=== PATIENT | female | born 1940 ===

== ENCOUNTER 2018-05-10 05:02 | Day surgery (SDC) | payer MEDICAID ==
--- NOTE | 2018-05-08 16:03 | Pre-Procedure Note/Attestation ---
Pre-Procedure Note/Attestation Complete Prior to Procedure Planned Procedure: right Procedure Narrative: pars plana vitrectomy with endolaser, OD Indications for Procedure Pre-Operative Diagnosis: Vitreous hemorrhage, OD Attestation I attest that I discussed the nature of the procedure; its benefits; risks and complications; and alternatives (and the risks and benefits of such alternatives ), prior to the procedure, with the patient (or the patient's legal call center representative). I attest that, if there was a reasonable possibility of needing a blood transfusion, the patient (or the patient's legal call center representative) was given the [facility] standardized written summary, pursuant to the Pee Yohannes Blood Safety Act ([place] Health and Safety Code # 1645, as amended). I attest that I re-evaluated the patient just prior to the surgery and that there has been no change in the patient's H&P, except as documented below: CHARLES CORNELL May 08, 2018 16:03
--- NOTE | 2018-05-08 16:06 | Opthalmology H&P ---
Ophthalmology H&P H&P Chief Complaint: decreased vision in right eye HPI Vision Affects Ability to: read, focus/use eyes together, manage personal affairs HPI Narrative blurry vision Exam Visual Acuity: OD: 20/200 OS: HM Tension: od: 12 os: 14 Eye Exam: normal OU: external exam, palpebral fissure-width, marginal reflex distance, levator function, corneas, anterior chambers; findings: lens - od: NS os: NS, fundus exam - vITREOUS HEME Assessment/Plan Diagnosis: (1) Vitreous hemorrhage of right eye Attestation Attestation The risks and benefits of the surgery as well as alternative procedures were explained to the patient in detail. CHARLES CORNELL May 08, 2018 16:05
[2018-05-10] VITALS (9 sets, daily range): BP systolic 148–180; BP diastolic 57–81
[~2018-05-10] VITALS: Ht 129.5 cm; Wt 64.0 kg
[~2018-05-10 05:02] MED LIST: ASPIR 8181 MG ORAL; GLIPIZIDE5 MG ORAL; METFORMIN HCL500 M1 ORAL; METOPROLOL TART25 MG ORAL; NORVASC5 MG ORAL; SPIRONOLACTONE25 MG ORAL
[2018-05-10] MEDS: Tobramycin Op Soln 0.3% 5ml RIGHT EYE SCH ×3 (06:27→06:50)
[2018-05-10] MEDS: Phenylephrine 10% Opth Soln 5ml RIGHT EYE SCH ×3 (06:28→06:50)
[2018-05-10] MEDS: Diclofenac Sod 0.1% Op Soln RIGHT EYE SCH ×3 (06:28→06:50)
[2018-05-10] MEDS: Cyclopentolate 1% Opth Sol 2ml RIGHT EYE SCH ×3 (06:28→06:50)
[2018-05-10] MEDS: Tropicamide 1% Opth 15ml Soln RIGHT EYE SCH ×3 (06:28→06:50)
[2018-05-10] MEDS ORDERED: Akten 3.5% 1ml Btl RIGHT EYE ONE (07:00)
[2018-05-10] MEDS ORDERED: Dexamethasone 4mg/ml vial ONE (07:00)
[2018-05-10] MEDS ORDERED: Pilocarpine 2% Opth 15ml Soln ONE (07:00)
[2018-05-10] MEDS ORDERED: Tetracaine 0.5% Opth 4ml Soln RIGHT EYE ONE (07:00)
[2018-05-10] MEDS ORDERED: Maxitrol Opth Oint 3.5gm ONE (07:00)
[2018-05-10] MEDS ORDERED: Pred Forte 1% Opth Susp 1ml ONE (07:00)
[2018-05-10] MEDS ORDERED: Proparacaine 0.5% Opth Soln 15ml RIGHT EYE ONE (07:00)
[2018-05-10] MEDS ORDERED: fentaNYL 100 mcg/2 mL IV ONE (07:04)
[2018-05-10] MEDS ORDERED: Propofol 200mg/20ml IV ONE (07:05)
[2018-05-10] MEDS ORDERED: Midazolam 2mg/2ml Inj ONE (07:05)
[2018-05-10] MEDS ORDERED: Kenalog-10 5ml Inj ONE (07:16)
[2018-05-10] MEDS ORDERED: BSS 500ml btl ONE (07:16)
[2018-05-10] MEDS ORDERED: Lidocaine 2% MPF 5ml Vial INJ ONE (07:16)
[2018-05-10] MEDS ORDERED: Kenalog-40 1ml Vial ONE (07:16)
[2018-05-10] MEDS ORDERED: BSS 15ml BTL ONE (07:17)
[2018-05-10] MEDS ORDERED: Povidone-Iodine 5% opth solution ONE (07:17)
[2018-05-10] MEDS ORDERED: Bupivacaine 0.75% 30ml vial INJ ONE (07:17)
[2018-05-10] MEDS ORDERED: EPINEPHrine 1mg/1ml Amp ONE (07:24)
[2018-05-10] MEDS ORDERED: Labetalol 5mg/ml 20ml vial IV ONE (07:30)
[2018-05-10] MEDS ORDERED: NS Irrig 1000ml ONE (07:30)
[2018-05-10] MEDS ORDERED: Sterile Water Irrig 1000ml IRRIG ONE (07:30)
[2018-05-10] MEDS ORDERED: LR 1000ml ONE (07:30)
[2018-05-10] MEDS ORDERED: LR 1000ml 1,000 ML IVLG SCH (07:40)
--- NOTE | 2018-05-10 07:40 | Anethesia Preoperative Eval ---
Anesthesia Pre-op PMH/ROS General Date of Evaluation: May 10, 2018 Time of Evaluation: 07:36 Anesthesiologist: Yobani ASA Score: ASA 3 Mallampati Score Class I : Soft palate, uvula, fauces, pillars visible Class II: Soft palate, uvula, fauces visible Class III: Soft palate, base of uvula visible Class IV: Only hard plate visible Mallampati Classification: Class II Surgeon: Kimmy Diagnosis: R eye vitreous hemorrhage Surgical Procedure: R eye PPV Anesthesia History: none Family History: no anesthesia problems Allergies: Coded Allergies: No Known Allergies (Unverified , 05/10/18) Medications: see eMAR Past Medical History Cardiovascular: Reports: HTN, CAD - no recent CP; Denies: NV, valve dz, arrhythmia, other Pulmonary: Denies: asthma, COPD, BERNARD, other Gastrointestinal/Genitourinary: Reports: GERD - mild; Denies: CRI, ESRD, other Neurologic/Psychiatric: Denies: dementia, CVA, depression/anxiety, TIA, other Endocrine: Reports: DM - stable on pills; Denies: hypothyroidism, steroids, other HEENT: Reports: glaucoma; Denies: cataract (L), cataract (R), KIANA (L), KIANA (R), other Hematology/Immune: Denies: anemia, DVT, bleeding disorder, other Musculoskeletal/Integumentary: Reports: DJD; Denies: OA, RA, DDD, edema, other PMH Narrative: as above PSxH Narrative: cholecystectomy Anesthesia Pre-op Phys. Exam Physician Exam Last Vital Signs Date Time Temp Pulse Resp B/P (MAP) Pulse Ox O2 Delivery O2 Flow Rate FiO2 05/10/18 06:52 98.1 70 18 163/70 (101) 96 98.1 05/10/18 06:30 Room Air Constitutional: NAD Neurologic: CN 2-12 intact Cardiovascular: RRR, no M/R/G Respiratory: CTA Gastrointestinal: S/NT/ND Airway Exam Mallampati Score: Class II MO: limited Neck: stiff ROM: limited Teeth: missing Dentures: no upper, no lower Anesthesia Pre-op A/P Labs see chart Studies Pre-op Studies: EKG - SR Risk Assessment & Plan Assessment: ASA 3 Plan: MAC Status Change Before Surgery: No Pre-Antibiotics Drug: none Franco Hilton MD May 10, 2018 07:40
[2018-05-10] MEDS ORDERED: fentaNYL 100 mcg/2 mL IV PRN (07:45)
--- NOTE | 2018-05-10 10:42 | Immediate Post-Op Evaluation ---
Immediate Post-Op Evalulation Immediate Post-Op Evalulation Procedure: R eye PPV laser treatment Date of Evaluation: May 10, 2018 Time of Evaluation: 09:22 IV Fluids: 300 Blood Products: none Estimated Blood Loss: min Urinary Output: none Blood Pressure Systolic: 142 Blood Pressure Diastolic: 68 Pulse Rate: 64 Respiratory Rate: 20 O2 Sat by Pulse Oximetry: 99 Temperature (Fahrenheit): 97.5 Pain Score (1-10): 1 Nausea: No Vomiting: No Complications none Patient Status: awake, patent, none Hydration Status: adequate Franco Hilton MD May 10, 2018 10:42
--- NOTE | 2018-05-10 14:56 | 48 Hour Post Anesthesia Eval ---
Post Anesthesia Evaluation Procedure: R eye PPV laser treatment Date of Evaluation: May 10, 2018 Time of Evaluation: 09:45 Blood Pressure Systolic: 148 0: 57 Pulse Rate: 72 Respiratory Rate: 20 Temperature (Fahrenheit): 97.6 O2 Sat by Pulse Oximetry: 98 Airway: patent Nausea: No Vomiting: No Pain Intensity: 2 Hydration Status: adequate Cardiopulmonary Status: stable Mental Status/LOC: patient returned to baseline Follow-up Care/Observations: n/a Post-Anesthesia Complications: none Follow-up care needed: ready to discharge Franco Hilton MD May 10, 2018 14:55
--- NOTE | 2018-05-13 17:17 | Brief Operative Note ---
Immediate Post Operative Note Operative Note Chief Complaint: blurry vision affecting daily living Pre-op Diagnosis: Vitreous hemorrhage, OD Procedure: Pars Plan Vitrectomy with endolaser, OD Post-op Diagnosis: Vitreous hemorrhage, OD Post-op Diagnosis: same as pre-op Findings: consistent w/pre-op dx studies Surgeon: Kimmy Anesthesiologist: Yobani Anesthesia: MAC Specimen: none Complications: none Condition: stable Fluids: LR Estimated Blood Loss: none Drains: none Implant(s) used?: Yes CHARLES CORNELL May 13, 2018 17:17
--- NOTE | 2018-05-13 19:52 | Operative Note - PDOC ---
Operative Note Operative Note Date of Operation/Procedure: May 10, 2018 Chief Complaint: blurry vision affecting daily living Pre-op Diagnosis: Vitreous hemorrhage, OD Procedure: Pars Plan Vitrectomy with endolaser, OD Post-op Diagnosis: Vitreous hemorrhage, OD Post-op Diagnosis: same as pre-op Operative Findings: consistent w/pre-op dx studies Surgeon: Kimmy Anesthesiologist: Yobani Anesthesia: MAC Specimen: none Complications: none Condition: stable Fluids: LR Estimated Blood Loss: none Drains: none Implant(s) used?: Yes Indications for Procedure vitreous hemorrhage Description of Procedure The patient has been complaining visually significant blurry vision and seeing red in the affected eye with the best corrected visual acuity under moderate glare conditions worse. The patient complains of difficulties with glare in performing activities of daily living and wants to manage personal affairs with comfort and accuracy and see well enough to move with safety at home and outdoors. ~~~ The risks, benefits and alternatives of the procedure were discussed with the patient in the office prior to scheduling surgery. All questions from the patient were answered after the surgical procedure was explained in detail. The risks of the procedure as explained to the patient include, but are not limited to, pain, infection, bleeding, loss of vision, retinal detachment, need for further surgery, loss of lens nucleus, double vision, etc. Alternative procedures were discussed which include, to do nothing or seek a second opinion. Informed consent for this procedure was obtained from the patient. The patient was referred to a primary care physician for a cardiopulmonary clearance prior to surgery, after proper evaluation was done patient was properly scheduled for outpatient surgery. The patient was brought to the operating room where the anesthesiologist established I.V. lines and cardiac monitoring leads. Mild intravenous sedation was administered. The patient was then prepared with a 5% solution of povidone- iodine to the conjunctival fornix and lashes, and a 5% solution of povidone- iodine to the lids and periorbital skin. The patient was then draped in the usual sterile fashion. A lid speculum was then placed in the operative eye. A 25 gauge infusion cannula was placed inferotemporal quadrant 4.0 mm posterior to the limbus. The tip of the cannula was directly visualized through the pupil and noted to be free of any overlying tissue. The infusion line was turned to on position. The light pipe and microvitrectomy handpiece was inserted into the eye. Pars plana vitrectomy was performed. Vitreous heme and associated dense vitreous and debris were removed from the microvitrectomy handpiece. Following clearing of the vitreous heme and associated debris, the fundus was inspected. The endolaser probe was inserted. Endo panretinal photocoagulation was applied to retinal periphery The lid speculum were then removed. Sponge and needle counts were correct. An eye patch and shield were placed over the operative eye. The patient was taken to the recovery room in stable condition. There were no complications. The patient tolerated the procedure well and was then transferred to the ambulatory surgery unit in stable and satisfactory condition, was given detailed written instructions and asked to follow up ~in the office the next day. CHARLES CORNELL May 13, 2018 19:52
== END 2018-05-10 10:30 | disposition home or self-care (01) ==
LOC: SUR 05:02
DX: H43.11 Vitreous hemorrhage, right eye (principal); E11.9 Type 2 diabetes mellitus without complications; Z79.84 Long term (current) use of oral hypoglycemic drugs; I10 Essential (primary) hypertension; E78.5 Hyperlipidemia, unspecified; I25.10 Atherosclerotic heart disease of native coronary artery without angina pectoris; Z95.5 Presence of coronary angioplasty implant and graft; H40.9 Unspecified glaucoma; K21.9 Gastro-esophageal reflux disease without esophagitis; M19.90 Unspecified osteoarthritis, unspecified site; Z90.49 Acquired absence of other specified parts of digestive tract; Z79.82 Long term (current) use of aspirin
CPT/HCPCS: 67040; 82962; J0171; J1100; J2250; J2704; J3010; J3470; J3490; Z7512; 94003; 94150

== ENCOUNTER 2018-09-23 05:53 | Day surgery (SDC) | payer MEDICAID ==
--- NOTE | 2018-09-20 11:06 | Opthalmology H&P ---
Ophthalmology H&P H&P Chief Complaint: decreased vision in left eye HPI Vision Affects Ability to: read, watch TV, manage personal affairs Past Ocular History: retinal problems - Vitreous Hemorrhage os Exam Visual Acuity: OD: 20/100 OS: HAND MOTION Tension: OD:14 OS:15 Eye Exam: normal OU: external exam, palpebral fissure-width, marginal reflex distance, levator function, corneas, anterior chambers, lens, fundus exam; findings: fundus exam Assessment/Plan Diagnosis: (1) Nuclear sclerotic cataract of left eye Treatment Plan: cataract extraction w/ lens implant Goals of Treatment: improvement of vision, enhance quality of life Attestation Attestation The risks and benefits of the surgery as well as alternative procedures were explained to the patient in detail. Tyrone Oneal MD Sep 20, 2018 11:06
--- NOTE | 2018-09-20 11:12 | Pre-Procedure Note/Attestation ---
Pre-Procedure Note/Attestation Complete Prior to Procedure Planned Procedure: left Procedure Narrative: Cataract Extraction With IOL Implant Left Eye Indications for Procedure Pre-Operative Diagnosis: Nuclear Sclerotic Cataract Left Eye Attestation I attest that I discussed the nature of the procedure; its benefits; risks and complications; and alternatives (and the risks and benefits of such alternatives ), prior to the procedure, with the patient (or the patient's legal dental detail representative). I attest that, if there was a reasonable possibility of needing a blood transfusion, the patient (or the patient's legal dental detail representative) was given the [facility] standardized written summary, pursuant to the Pee Yohannes Blood Safety Act ([place] Health and Safety Code # 1645, as amended). I attest that I re-evaluated the patient just prior to the surgery and that there has been no change in the patient's H&P, except as documented below: Tyrone Oneal MD Sep 20, 2018 11:12
[2018-09-23] VITALS (9 sets, daily range): BP systolic 145–182; BP diastolic 60–76
[~2018-09-23] VITALS: Ht 129.5 cm; Wt 61.2 kg
[~2018-09-23 05:53] MED LIST changes: +Akten 3.5% 1ml Btl RIGHT EYE ONE; +Cyclopentolate 1% Opth Sol 2ml RIGHT EYE SCH; +Diclofenac Sod 0.1% Op Soln RIGHT EYE SCH; +Phenylephrine 10% Opth Soln 5ml RIGHT EYE SCH; +Proparacaine 0.5% Opth Soln 15ml RIGHT EYE ONE; +Tetracaine 0.5% Opth 4ml Soln RIGHT EYE ONE; +Tobramycin Op Soln 0.3% 5ml RIGHT EYE SCH; +Tropicamide 1% Opth 15ml Soln RIGHT EYE SCH
[2018-09-23] MEDS ORDERED: Akten 3.5% 1ml Btl LEFT EYE ONE (07:00)
[2018-09-23] MEDS ORDERED: Maxitrol Opth Oint 3.5gm ONE (07:00)
[2018-09-23] MEDS ORDERED: Tetracaine 0.5% Opth 4ml Soln LEFT EYE ONE (07:00)
[2018-09-23] MEDS ORDERED: Proparacaine 0.5% Opth Soln 15ml LEFT EYE ONE (07:00)
[2018-09-23] MEDS ORDERED: Dexamethasone 4mg/ml vial ONE (07:00)
[2018-09-23] MEDS ORDERED: Pred Forte 1% Opth Susp 1ml ONE (07:00)
[2018-09-23] MEDS ORDERED: Pilocarpine 1% Opth 15ml Soln ONE (07:00)
[2018-09-23] MEDS: Tobramycin Op Soln 0.3% 5ml LEFT EYE SCH ×3 (07:16→07:43)
[2018-09-23] MEDS: Phenylephrine 10% Opth Soln 5ml LEFT EYE SCH ×3 (07:16→07:42)
[2018-09-23] MEDS: Tropicamide 1% Opth 15ml Soln LEFT EYE SCH ×3 (07:16→07:42)
[2018-09-23] MEDS: Cyclopentolate 1% Opth Sol 2ml LEFT EYE SCH ×3 (07:16→07:43)
[2018-09-23] MEDS: Diclofenac Sod 0.1% Op Soln LEFT EYE SCH ×3 (07:17→07:43)
[2018-09-23] MEDS ORDERED: Midazolam 2mg/2ml Inj ONE ×2 (07:54→08:00)
[2018-09-23] MEDS ORDERED: Sterile Water Irrig 1000ml IRRIG ONE (08:00)
[2018-09-23] MEDS ORDERED: LR 1000ml ONE (08:00)
[2018-09-23] MEDS ORDERED: NS Irrig 1000ml ONE (08:00)
[2018-09-23] MEDS ORDERED: Propofol 200mg/20ml IV ONE (08:00)
[2018-09-23] MEDS ORDERED: fentaNYL 100 mcg/2 mL IV ONE (08:00)
[2018-09-23] MEDS ORDERED: Povidone-Iodine 5% opth solution ONE (08:10)
[2018-09-23] MEDS ORDERED: BSS 500ml btl ONE (08:10)
[2018-09-23] MEDS ORDERED: BSS 15ml BTL ONE (08:10)
[2018-09-23] MEDS ORDERED: EPINEPHrine 1mg/1ml Amp ONE (08:10)
[2018-09-23] MEDS ORDERED: Sodium Hyaluronate 14 mg/ml 0.85ml ONE (08:11)
[2018-09-23] MEDS ORDERED: LR 1000ml 1,000 ML IVLG SCH (08:39)
--- NOTE | 2018-09-23 08:39 | Anethesia Preoperative Eval ---
Anesthesia Pre-op PMH/ROS General Date of Evaluation: Sep 23, 2018 Time of Evaluation: 08:16 Anesthesiologist: Yobani ASA Score: ASA 3 Mallampati Score Class I : Soft palate, uvula, fauces, pillars visible Class II: Soft palate, uvula, fauces visible Class III: Soft palate, base of uvula visible Class IV: Only hard plate visible Mallampati Classification: Class II Surgeon: Kimmy Diagnosis: L eye cataract Surgical Procedure: L eye cataract extraction Anesthesia History: none Family History: no anesthesia problems Allergies: Coded Allergies: No Known Allergies (Unverified , 05/10/18) Medications: see eMAR Patient NPO?: Yes Past Medical History Cardiovascular: Reports: HTN, CAD - stable no rcent CP Pulmonary: Denies: asthma, COPD, BERNARD, other Gastrointestinal/Genitourinary: Reports: GERD; Denies: CRI, ESRD, other Neurologic/Psychiatric: Denies: dementia, CVA, depression/anxiety, TIA, other Endocrine: Reports: DM - on pills HEENT: Reports: cataract (L), cataract (R); Denies: glaucoma, KENAITZE (L), KENAITZE (R), other Hematology/Immune: Denies: anemia, DVT, bleeding disorder, other Musculoskeletal/Integumentary: Reports: DJD; Denies: OA, RA, DDD, edema, other PMH Narrative: as above PSxH Narrative: see chart Anesthesia Pre-op Phys. Exam Physician Exam Last Vital Signs Date Time Temp Pulse Resp B/P (MAP) Pulse Ox O2 Delivery O2 Flow Rate FiO2 09/23/18 07:41 Room Air 09/23/18 07:38 97.8 66 18 163/66 96 Constitutional: NAD Neurologic: CN 2-12 intact Cardiovascular: RRR, no M/R/G Respiratory: CTA Gastrointestinal: S/NT/ND Airway Exam Mallampati Score: Class II MO: limited Neck: stiff ROM: limited Teeth: missing Dentures: no upper, no lower Franco Hilton MD Sep 23, 2018 08:39
[2018-09-23] MEDS ORDERED: fentaNYL 100 mcg/2 mL IV PRN (08:45)
--- NOTE | 2018-09-23 09:27 | Immediate Post-Op Evaluation ---
Immediate Post-Op Evalulation Immediate Post-Op Evalulation Procedure: L eye cataract extraction with IOL Date of Evaluation: Sep 23, 2018 Time of Evaluation: 09:04 IV Fluids: 200 Blood Products: none Estimated Blood Loss: none Urinary Output: none Blood Pressure Systolic: 124 Blood Pressure Diastolic: 56 Pulse Rate: 72 Respiratory Rate: 20 O2 Sat by Pulse Oximetry: 98 Temperature (Fahrenheit): 97.5 Pain Score (1-10): 1 Nausea: No Vomiting: No Complications none Patient Status: awake, patent, none Hydration Status: adequate Franco Hilton MD Sep 23, 2018 09:27
--- NOTE | 2018-09-23 09:33 | 48 Hour Post Anesthesia Eval ---
Post Anesthesia Evaluation Procedure: L eye cataract extraction with IOL Date of Evaluation: Sep 23, 2018 Time of Evaluation: 09:32 Blood Pressure Systolic: 128 0: 76 Pulse Rate: 64 Respiratory Rate: 20 Temperature (Fahrenheit): 97.6 O2 Sat by Pulse Oximetry: 98 Airway: patent Nausea: No Vomiting: No Pain Intensity: 1 Hydration Status: adequate Cardiopulmonary Status: stable Mental Status/LOC: patient returned to baseline Follow-up Care/Observations: n/a Post-Anesthesia Complications: none Follow-up care needed: ready to discharge Franco Hilton MD Sep 23, 2018 09:33
--- NOTE | 2018-09-23 10:45 | NUR ---
NURSE NOTES: Patient's NIBP is 182/60. Patient is awake, alert and oriented x4 with no signs of acute distress. Patient reports no headache, dizziness, chest pain and no redness of the skin is noted and skin is dry to the touch. Patient and granddaughter, Codi, state that the patient normally takes blood pressure medication at home and did not take the medication this morning. Dr. Geronimo Hilton contacted in regards to blood pressure. He states "okay to discharge home". Granddaughter, Codi, instructed to make sure the patient takes her blood pressure medication upon arrival home. Also, the patient has a blood pressure cuff at her home. Granddaughter states she knows how to operate the equipment. Bedside nurse instructed the patient's granddaughter to monitor the patient and to check her blood pressure after taking the medications and to seek medical attention if the blood pressure does not improve and/or worsens. Granddaughter verbalized understanding of the instructions.
--- NOTE | 2018-09-24 13:41 | Brief Operative Note ---
Immediate Post Operative Note Operative Note Chief Complaint: blurry vision Pre-op Diagnosis: Nuclear Sclerotic Cataract Left Eye Procedure: phaco with IOL Post-op Diagnosis: cataract Post-op Diagnosis: same as pre-op Findings: consistent w/pre-op dx studies Surgeon: Kimmy Anesthesiologist: Yobani Anesthesia: MAC Specimen: none Complications: none Condition: stable Fluids: LR Estimated Blood Loss: none Drains: none Implant(s) used?: Yes Tyrone Oneal MD Sep 24, 2018 13:41
--- NOTE | 2018-09-24 13:42 | Operative Note - PDOC ---
Operative Note Operative Note Date of Operation/Procedure: Sep 23, 2018 Chief Complaint: blurry vision Pre-op Diagnosis: Nuclear Sclerotic Cataract Left Eye Procedure: phaco with IOL Post-op Diagnosis: cataract Post-op Diagnosis: same as pre-op Operative Findings: consistent w/pre-op dx studies Surgeon: Kimmy Anesthesiologist: Yobani Anesthesia: MAC Specimen: none Complications: none Condition: stable Fluids: LR Estimated Blood Loss: none Drains: none Implant(s) used?: Yes Indications for Procedure cataract Description of Procedure This patient has been complaining visually significant cataract in the affected eye with the best corrected visual acuity under moderate glare conditions worse. The patient complains of difficulties with glare in performing activities of daily living and wants to manage personal affairs with comfort and accuracy and see well enough to move with safety at home and outdoors. The risks, benefits and alternatives of the procedure were discussed with the patient in the office prior to scheduling surgery. All questions from the patient were answered after the surgical procedure was explained in detail. The risks of the procedure as explained to the patient include, but are not limited to, pain, infection, bleeding, loss of vision, retinal detachment, need for further surgery, loss of lens nucleus, double vision, etc. Alternative procedures were discussed which include, to do nothing or seek a second opinion. Informed consent for this procedure was obtained from the patient. The patient was referred to a primary care physician for a cardiopulmonary clearance prior to surgery, after proper evaluation was done patient was properly scheduled for outpatient surgery. The patient was brought to the operating room where the anesthesiologist established I.V. lines and cardiac monitoring leads. Mild intravenous sedation was administered. The patient was then prepared with a 5% solution of povidone -iodine to the conjunctival fornix and lashes, and a 5% solution of povidone- iodine to the lids and periorbital skin. The patient was then draped in the usual sterile fashion. A lid speculum was then placed in the operative eye. A keratome blade was then used to create a biplanar incision into the anterior chamber. Viscoelastics was then instilled into the anterior chamber. A 3-mm single pass clear corneal incision was made just anterior to the vascular arcade of the temporal limbus using a keratome. Anterior capsulorrhexis was created. The nucleus was hydrodissected and hydrodelineated with G 27 cannula, and was freely movable in the capsular bag. The nucleus was then phacoemulsified. Following the deep groove formation, the lens was split bimanually and epicortex removed under vacuum burst-mode phacoemulsification. Peripheral cortex was removed with the irrigation and aspiration handpiece. The capsular bag was expanded with viscoelastic. The intraocular lens was then inspected for right power and size and thought to be satisfactory. The implant was inspected under the microscope and found to be free of defects. The implant was inserted into the cartridge system under viscoelastic and placed in the capsular bag. The trailing haptic was positioned with the cartridge system. Viscoelastics was removed from the anterior chamber using the irrigation and aspiration unit. The corneal wound was then tested for leaks and none were found. The lid speculum were then removed. Sponge and needle counts were correct. An eye patch and shield were placed over the operative eye. The patient was taken to the recovery room in stable condition. There were no complications. The patient tolerated the procedure well. The patient was then transferred to the ambulatory surgery unit in stable and satisfactory condition , was given detailed written instructions and asked to follow up in the office the next day. Tyrone Oneal MD Sep 24, 2018 13:42
== END 2018-09-23 10:45 | disposition home or self-care (01) ==
LOC: SUR 05:53
DX: H25.12 Age-related nuclear cataract, left eye (principal); E11.9 Type 2 diabetes mellitus without complications; I10 Essential (primary) hypertension; K21.9 Gastro-esophageal reflux disease without esophagitis; I25.10 Atherosclerotic heart disease of native coronary artery without angina pectoris; Z95.5 Presence of coronary angioplasty implant and graft; E78.5 Hyperlipidemia, unspecified; M19.90 Unspecified osteoarthritis, unspecified site
CPT/HCPCS: 66984; 82962; J0171; J1100; J2250; J2704; J3010; J3370; V2632; Z7512; 94003; 94150